=== PATIENT | male | born 1960 | race Hispanic/Latino ===

== ENCOUNTER → 2019-08-17 | Outpatient (CLI) | payer BC ==
[2019-08-17 11:21] LABS: BASOPHILS % 0.6 % (0.0-1.0); EOSINOPHILS # (AUTO) 0.2 (0.0-0.4); EOSINOPHILS % 2.5 % (0.0-6.0); HEMATOCRIT 49.4 % (38.2-49.6); HEMOGLOBIN 16.3 g/dL (14.0-18.0); LYMPHOCYTES # (AUTO) 1.6 (1.0-3.2); MEAN CORPUSCULAR HEMOGLOBIN 32.3 pg (28-32); MONOCYTES # (AUTO) 0.5 (0.2-0.8); MONOCYTES % 6.7 % (4.4-11.3); NEUTROPHILS # (AUTO) 4.8 (2.1-6.9); NEUTROPHILS % 67.8 % (38.7-80.0); PLATELET COUNT 336 x10e3/uL (140-360); RED BLOOD COUNT 5.04 x10e6/uL (4.3-5.7); RED CELL DISTRIBUTION WIDTH 13.4 % (11.7-14.4)
--- NOTE | 2019-08-17 11:48 | Diagnostic Imaging Report ---
TECHNIQUE: Frontal and lateral views of the chest. INDICATION: ^[id number] ^[id number] ^RIB FX/LUNG CONTUSION COMPARISON: None. IMPRESSION: Lines and hardware: None. Heart and mediastinum: Unremarkable cardiomediastinal silhouette. Lungs and pleura: Small left costophrenic angle patchy opacity/atelectasis with effusion. Small right pleural effusion. No pneumothorax. Soft tissues and bones: No acute bony abnormality; radiographs are limited in sensitivity for the detection of rib fractures. Possible hiatal hernia. Signed by: Michael Sharma MD on 08/17/2019 11:45 AM
[2019-08-18 07:35] LABS: ALANINE AMINOTRANSFERASE 63 IU/L (0-55); ALBUMIN 3.2 g/dL (3.5-5.0); ALBUMIN/GLOBULIN RATIO 0.7 (0.8-2.0); ALKALINE PHOSPHATASE 132 IU/L (40-150); ANION GAP 14.4 mmol/L (8-16); BLOOD UREA NITROGEN 16 mg/dL (7-26); BUN/CREATININE RATIO 17 (6-25); CALCIUM 8.8 mg/dL (8.4-10.2); CARBON DIOXIDE 23 mmol/L (22-29); CHLORIDE 104 mmol/L (98-107); CREATININE, SERUM 0.94 mg/dL (0.72-1.25); EST GLOMERULAR FILTRATION RATE > 60 ML/MIN (60-); GLUCOSE 101 mg/dL (74-118); POTASSIUM 4.4 mmol/L (3.5-5.1); SODIUM 137 mmol/L (136-145)
== END ==
LOC: RAD 10:16
PROVIDERS: ATTEND Surgery
DX: R07.89 Other chest pain (principal); S20.219A Contusion of unspecified front wall of thorax, initial encounter; J90 Pleural effusion, not elsewhere classified
CPT/HCPCS: 36415; 71046; 80053; 85025

== ENCOUNTER 2019-10-25 17:00 | Outpatient (RCR) | payer BC | END 2019-10-31 | LOC: PT 17:00 | PROVIDERS: ATTEND Specialist | DX: S42.151A Displaced fracture of neck of scapula, right shoulder, initial encounter for closed fracture (principal); S22.41XA Multiple fractures of ribs, right side, initial encounter for closed fracture; M25.511 Pain in right shoulder; M25.611 Stiffness of right shoulder, not elsewhere classified; M62.81 Muscle weakness (generalized) | CPT/HCPCS: 97139 ==

== ENCOUNTER 2019-11-01 16:59 | Outpatient (RCR) | payer BC | END 2019-11-30 | LOC: PT 16:59 | PROVIDERS: ATTEND Specialist | DX: S42.151A Displaced fracture of neck of scapula, right shoulder, initial encounter for closed fracture (principal); S22.41XA Multiple fractures of ribs, right side, initial encounter for closed fracture; M25.511 Pain in right shoulder; M25.611 Stiffness of right shoulder, not elsewhere classified; M62.81 Muscle weakness (generalized) | CPT/HCPCS: 97139 ==